=== PATIENT | male | born 1965 | race African-American/Black ===

== ENCOUNTER 2017-10-08 08:02 | Emergency (ER) | payer OTHER ==
[~2017-10-08] VITALS: Wt 97.5 kg
[2017-10-08] MEDS ORDERED: CYCL-331 PO (08:27)
[2017-10-08] MEDS ORDERED: NAPR-683 PO (08:27)
[2017-10-08] MEDS ORDERED: METH4TAB2 PO (08:27)
--- NOTE | 2017-10-08 08:27 | PHYS DOC ---
Past History Past Medical History: Asthma Past Surgical History: Other Alcohol Use: None Drug Use: None Adult General Chief Complaint Chief Complaint: BACK PAIN OR INJURY [facility] HPI Patient is a 52 year old male who presents with complaining of back pain. Patient states he has had chronic back pain and used to take muscle relaxants and Vicodin before his incarceration 3 years ago but is currently in skilled nursing house for the last one month and thought that the new physical job. Patient complaining of low back pain for the last 2 weeks as a constant sharp pain with radiation to right posterior thigh. Patient rated his pain 10/10 and states the pain getting even worse with activity and movement. Patient complaining of intermittent episodes of right lower extremity paresthesia with his low back pain for years without new change. Patient denies urinary and bowel incontinence , fever and chills, chest pain and shortness of breath, abdominal pain. She states he took Tylenol without improvement of his pain. Review of Systems Review of Systems Constitutional: Denies fever or chills [] Eyes: Denies change in visual acuity, redness, or eye pain [] HENT: Denies nasal congestion or sore throat [] Respiratory: Denies cough or shortness of breath [] Cardiovascular: No additional information not addressed in HPI [] GI: Denies abdominal pain, nausea, vomiting, bloody stools or diarrhea [] : Denies dysuria or hematuria [] Musculoskeletal: Reports back pain[] Integument: Denies rash or skin lesions [] Neurologic: Denies headache, focal weakness, reports sensory changes [] Endocrine: Denies polyuria or polydipsia [] All other systems were reviewed and found to be within normal limits, except as documented in this note. Allergies Allergies Allergies Coded Allergies Type Severity Reaction Last Updated Verified aspirin Allergy Unknown 10/08/17 Yes Physical Exam Physical Exam Constitutional: Well developed, well nourished, mild distress, non-toxic appearance. [] HENT: Normocephalic, atraumatic Eyes: PERRLA, EOMI, conjunctiva normal, no discharge. [] Neck: Normal range of motion, no tenderness, supple, no stridor. [] Cardiovascular:Heart rate regular rhythm, no murmur [] Lungs & Thorax: Bilateral breath sounds clear to auscultation [] Abdomen: Bowel sounds normal, soft, no tenderness, no masses, no pulsatile masses. [] Skin: Warm, dry, no erythema, no rash. [] Back: No midline tenderness, no CVA tenderness, right paraspinal muscle spasm. [ ] Extremities: No tenderness, no cyanosis, no clubbing, ROM intact, no edema. [] Neurologic: Alert and oriented X 3, normal motor function, normal sensory function, no focal deficits noted. [] Psychologic: Affect normal, judgement normal, mood normal. [] Current Patient Data Vital Signs Vital Signs Date Time Temp Pulse Resp B/P (MAP) Pulse Ox O2 Delivery O2 Flow Rate FiO2 10/08/17 08:13 98.6 96 18 95 Room Air EKG EKG [] Radiology/Procedures Radiology/Procedures [] Course & Med Decision Making Course & Med Decision Making Evaluation of patient in ER showed 52-year-old male patient with history of chronic back pain and increasing low back pain for the last 2 weeks after starting new job one month ago. Patient had right paraspinal muscle spasm without objective paresthesia. Patient was treated with Toradol and Norflex in ER. Prescription for Naprosyn and Medrol Dosepak and Flexeril was given but patient refused to take Naprosyn and stated it is causes GI bleeding for him. Prescription for Percogesic was given and patient instructed to apply ice on his back and follow with primary care physician. Patient requesting referral to a chiropractor and instructed to follow with his primary care physician for other referrals. Dragon Disclaimer Dragon Disclaimer This electronic medical record was generated, in whole or in part, using a voice recognition dictation system. Departure Departure: Impression: Primary Impression: Acute lumbosacral myofascial strain Additional Impression: Sciatic nerve pain Disposition: 01 HOME, SELF-CARE Condition: STABLE Referrals: PCP,UNKNOWN (PCP) Patient Instructions: Lumbosacral Strain, Sciatica Additional Instructions: Apply ice on your back Follow-up with your primary care physician in 3-5 days Return to ER if not getting better Scripts [Percogesic] No Conflict Check 1 TAB PO QID PRN for PAIN, #14 Prov: OLIVIA STOKES MD 10/08/17 Cyclobenzaprine Hcl (CYCLOBENZAPRINE HCL) 10 Mg Tablet 1 TAB PO TID, #30 TAB Prov: OLIVIA STOKES MD 10/08/17 Methylprednisolone (MEDROL) 4 Mg Tab.ds.pk 1 PKG PO UD, #1 PKG Prov: OLIVIA STOKES MD 10/08/17 Problem Qualifiers OLIVIA STOKES MD Oct 08, 2017 08:27
[2017-10-08] MEDS ORDERED: KETOROLAC 60 MG/2 ML VIAL. IM ONE (08:30)
[2017-10-08] MEDS ORDERED: ORPHENADRINE CITRATE 60 MG/2 ML VIAL. IM ONE (08:30)
[2017-10-08] MEDS ORDERED: Percogesic PO (08:46)
[2017-10-08 08:59] VITALS: BP 155/90
== END 2017-10-08 09:05 | disposition home or self-care (01) ==
LOC: ER 08:02
DX: S39.012A Strain of muscle, fascia and tendon of lower back, initial encounter (principal); M54.41 Lumbago with sciatica, right side; G89.29 Other chronic pain; J45.909 Unspecified asthma, uncomplicated; Z88.6 Allergy status to analgesic agent; X58.XXXA Exposure to other specified factors, initial encounter; Y93.89 Activity, other specified; Y92.89 Other specified places as the place of occurrence of the external cause; Y99.0 Civilian activity done for income or pay
CPT/HCPCS: 96372; 99284; J1885; J2360

== ENCOUNTER → 2017-11-11 | Outpatient (CLI) | payer OTHER ==
[~2017-11-11] MED LIST: CYCL-331 PO; METH4TAB2 PO; NAPR-683 PO; Percogesic PO
--- NOTE | 2017-11-11 15:26 | RAD ---
EXAM: Lumbar spine, 5 views. HISTORY: Pain. COMPARISON: None. FINDINGS: 5 views of the lumbar spine are obtained. There is degenerative endplate modeling and facet arthropathy at all levels, primarily at L4-L5 and L5-S1. There is no significant listhesis or disc space narrowing. There is no fracture. IMPRESSION: 1. Multilevel degenerative change, primarily at L4-L5 and L5-S1. 2. No acute osseous finding. Electronically signed by: Aissatou Mcdanile MD (11/11/2017 3:22 PM) [facility]
== END | disposition home or self-care (01) ==
LOC: DXRAD 14:32
PROVIDERS: ATTEND Neuromusculoskeletal Medicine & OMM
DX: M47.896 Other spondylosis, lumbar region (principal); M12.88 Other specific arthropathies, not elsewhere classified, other specified site; G89.29 Other chronic pain
CPT/HCPCS: 72110